=== PATIENT | male | born 1985 | race Caucasian/White ===

== ENCOUNTER 2017-11-02 22:13 | Emergency (ER) | payer SELFPAY ==
[~2017-11-02] VITALS: Ht 170.2 cm; Wt 55.7 kg
[2017-11-02 22:18] VITALS: TEMP 98
[2017-11-02 23:28] LABS: BASO # 0.1 (0.0-0.2); BASO % 0.7 % (0.0-2.0); EOS # 0.1 (0.0-0.7); EOS % 1.5 % (0-4.0); GRAN % 53.3 % (42.2-75.2); HEMATOCRIT 43.7 % (42.0-52.0); LYMPH # 2.8 (1.2-3.4); MEAN CELL VOLUME 83 fl (80.0-100.0); MEAN CORPUSCULAR HEMOGLOBIN 29 pg (27.0-31.0); MEAN CORPUSCULAR HGB CONC 34 g/dl (33.0-37.0); MEAN PLATELET VOLUME 10.3 fl (7.4-10.4); MONO # 0.5 (0.1-0.6); MONO % 7.2 % (1.7-9.3); PLATELET COUNT 210 K/mm3 (130-400); RED BLOOD COUNT 5.24 M/mm3 (4.20-5.60); REDCELL DISTRIBUTION WIDTH-CV 11.9 % (11.5-14.5)
[2017-11-02 23:39] LABS: ALBUMIN 4.1 gm/dL (3.5-5.0); BILIRUBIN,TOTAL 0.7 mg/dL (0.0-1.0); CALCIUM 9.1 mg/dL (8.4-10.2); CREATININE, serum 0.92 mg/dL (0.66-1.25); POTASSIUM 3.5 mmol/L (3.4-5.0); TOTAL PROTEIN 6.9 gm/dL (6.4-8.2)
[2017-11-02 23:54] LABS: COLLECTION METHOD CLEAN CATCH
[2017-11-03 00:05] LABS: AMORPHOUS CRYSTAL Present /uL; MUCOUS Present /lpf; PH 7 (5-8); SQUAMOUS EPITHELIAL 0-2 /hpf; URINE APPEARANCE Cloudy; URINE BACTERIA None Seen /hpf; URINE BILIRUBIN Negative (NEGATIVE); URINE BLOOD Negative (NEGATIVE); URINE COLOR Yellow; URINE GLUCOSE Negative (NEGATIVE); URINE KETONE Negative (NEGATIVE); URINE LEUKOCYTE ESTERASE Negative (NEGATIVE); URINE NITRATE Negative (NEGATIVE); URINE PROTEIN(semi-quant) 1+ (NEGATIVE); URINE RBC 20-50 /hpf; URINE UROBILINOGEN >=4.0 mg/dL (NEGATIVE)
[2017-11-03] MEDS ORDERED: FLEXERIL 1010 MG/TAB PO (01:38)
[2017-11-03] MEDS ORDERED: NORCO 325 MG-51 TAB PO (01:38)
[2017-11-03 01:50] VITALS: BP 114/77; PULSE 66
== END 2017-11-03 02:00 | disposition home or self-care (01) ==
LOC: COL.ER 22:13
PROVIDERS: Emergency Medicine
DX: N20.0 Calculus of kidney (principal); R51 Headache; M54.5 Low back pain; H53.9 Unspecified visual disturbance; F17.210 Nicotine dependence, cigarettes, uncomplicated
CPT/HCPCS: J1885; J7030; Q9967

== ENCOUNTER 2018-02-03 22:57 | Emergency (ER) | payer SELFPAY ==
[~2018-02-03] VITALS: Ht 170.2 cm; Wt 54.5 kg
[~2018-02-03 22:57] MED LIST: FLEXERIL 1010 MG/TAB PO; NORCO 325 MG-51 TAB PO
[2018-02-03 23:03] VITALS: BP 145/75; TEMP 98.3
[2018-02-03] MEDS ORDERED: FLOVENT 110MCG7.9 GM IH (23:21)
[2018-02-04 00:14] VITALS: PULSE 73
== END 2018-02-04 00:14 | disposition home or self-care (01) ==
LOC: COL.ER 22:57
DX: J06.9 Acute upper respiratory infection, unspecified (principal); F17.210 Nicotine dependence, cigarettes, uncomplicated; Z79.51 Long term (current) use of inhaled steroids

== ENCOUNTER → 2018-02-22 | Outpatient (CLI) | payer SELFPAY ==
[~2018-02-22] MED LIST changes: +FLOVENT 110MCG7.9 GM IH
[2018-02-22 12:30] LABS: HEMOGLOBIN 17.3 g/dl (13.5-18.0); MEAN CELL VOLUME 85 fl (80.0-100.0); MEAN CORPUSCULAR HEMOGLOBIN 29 pg (27.0-31.0); MEAN CORPUSCULAR HGB CONC 34 g/dl (33.0-37.0); MEAN PLATELET VOLUME 9.7 fl (7.4-10.4); PLATELET COUNT 236 K/mm3 (130-400); REDCELL DISTRIBUTION WIDTH-CV 12.3 % (11.5-14.5)
[2018-02-22 12:44] LABS: ALBUMIN 4.9 gm/dL (3.5-5.0); BILIRUBIN,TOTAL 0.6 mg/dL (0.0-1.0); CALCIUM 9.5 mg/dL (8.4-10.2); CREATININE, serum 0.83 mg/dL (0.66-1.25); POTASSIUM 4.3 mmol/L (3.4-5.0); TOTAL PROTEIN 8.8 gm/dL (6.4-8.2)
[2018-02-22 13:13] LABS: THYROID STIMULATING HORMONE 0.61 uIU/mL (0.465-4.680)
== END ==
LOC: COL.LAB 11:59
DX: R59.0 Localized enlarged lymph nodes (principal); R63.4 Abnormal weight loss; F17.210 Nicotine dependence, cigarettes, uncomplicated

== ENCOUNTER → 2018-02-25 | Outpatient (CLI) | payer SELFPAY | LOC: COL.RAD 07:19 | DX: N20.0 Calculus of kidney (principal); R59.0 Localized enlarged lymph nodes; R19.5 Other fecal abnormalities; R04.2 Hemoptysis; R63.4 Abnormal weight loss | CPT/HCPCS: Q9967 ==

== ENCOUNTER 2018-04-04 12:51 | Day surgery (SDC) | payer SELFPAY ==
[~2018-04-04] VITALS: Ht 170.2 cm; Wt 54.3 kg
[2018-04-04 13:28] VITALS: BP 119/77; PULSE 66; TEMP 97.3
[2018-04-04 14:30] VITALS: BP 116/78; PULSE 80; TEMP 97
[2018-04-04 14:45] VITALS: BP 124/78; PULSE 75
[2018-04-04 15:00] VITALS: BP 107/78; PULSE 78
[2018-04-04 15:15] VITALS: BP 114/86; PULSE 74
[2018-04-04 15:30] VITALS: BP 116/69; PULSE 65
== END 2018-04-04 15:45 | disposition home or self-care (01) ==
LOC: SDCO 12:51
DX: K92.1 Melena (principal); K64.1 Second degree hemorrhoids; K92.0 Hematemesis; K59.00 Constipation, unspecified; J43.9 Emphysema, unspecified; K21.9 Gastro-esophageal reflux disease without esophagitis; K62.89 Other specified diseases of anus and rectum
CPT/HCPCS: J2250; J2405; J3010; J7030

== ENCOUNTER 2018-04-17 18:57 | Emergency (ER) | payer SELFPAY ==
[~2018-04-17] VITALS: Ht 170.2 cm; Wt 55.7 kg
[2018-04-17 19:00] VITALS: TEMP 98.6
[2018-04-17] MEDS ORDERED: PRILOSEC 20MG20 MG PO (19:03)
[2018-04-17 19:44] LABS: BASO # 0.1 (0.0-0.2); BASO % 0.8 % (0.0-2.0); EOS # 0.1 (0.0-0.7); EOS % 1.1 % (0-4.0); GRAN # 4.4 (1.4-6.5); GRAN % 57.8 % (42.2-75.2); HEMATOCRIT 47.8 % (42.0-52.0); HEMOGLOBIN 16.3 g/dl (13.5-18.0); LYMPH # 2.4 (1.2-3.4); LYMPH % 32.1 % (20.0-51.0); MEAN CELL VOLUME 84 fl (80.0-100.0); MEAN CORPUSCULAR HEMOGLOBIN 29 pg (27.0-31.0); MEAN CORPUSCULAR HGB CONC 34 g/dl (33.0-37.0); MEAN PLATELET VOLUME 9.6 fl (7.4-10.4); MONO # 0.6 (0.1-0.6); MONO % 7.9 % (1.7-9.3); PLATELET COUNT 199 K/mm3 (130-400); RED BLOOD COUNT 5.71 M/mm3 (4.20-5.60); REDCELL DISTRIBUTION WIDTH-CV 12.2 % (11.5-14.5)
[2018-04-17 19:57] LABS: ALBUMIN 4.4 gm/dL (3.5-5.0); BILIRUBIN,TOTAL 0.7 mg/dL (0.0-1.0); CALCIUM 9.1 mg/dL (8.4-10.2); CREATININE, serum 0.76 mg/dL (0.66-1.25); POTASSIUM 4.5 mmol/L (3.4-5.0); TOTAL PROTEIN 7.7 gm/dL (6.4-8.2)
[2018-04-17 20:34] VITALS: BP 117/79; PULSE 81
== END 2018-04-17 20:45 | disposition home or self-care (01) ==
LOC: COL.ER 18:57
PROVIDERS: Emergency Medicine
DX: J42 Unspecified chronic bronchitis (principal); R42 Dizziness and giddiness; F17.210 Nicotine dependence, cigarettes, uncomplicated

== ENCOUNTER 2018-08-28 18:29 | Emergency (ER) | payer SELFPAY ==
[~2018-08-28] VITALS: Ht 170.2 cm; Wt 58.3 kg
[~2018-08-28 18:29] MED LIST changes: +PRILOSEC 20MG20 MG PO
[2018-08-28 18:38] VITALS: BP 131/82; PULSE 92; TEMP 97.9
== END 2018-08-28 18:45 | disposition left against medical advice (07) ==
LOC: COL.ER 18:29
DX: K08.89 Other specified disorders of teeth and supporting structures (principal)

== ENCOUNTER 2018-10-29 20:34 | Emergency (ER) | payer SELFPAY ==
[~2018-10-29] VITALS: Ht 170.2 cm; Wt 52.3 kg
[2018-10-29 20:38] VITALS: TEMP 98.3
[2018-10-29 21:02] LABS: BASO # 0.1 (0.0-0.2); BASO % 0.6 % (0.0-2.0); EOS # 0.1 (0.0-0.7); EOS % 0.6 % (0-4.0); GRAN # 7.4 (1.4-6.5); GRAN % 62.3 % (42.2-75.2); HEMATOCRIT 45.6 % (42.0-52.0); HEMOGLOBIN 16.1 g/dl (13.5-18.0); LYMPH # 3.2 (1.2-3.4); LYMPH % 27.2 % (20.0-51.0); MEAN CELL VOLUME 80 fl (80.0-100.0); MEAN CORPUSCULAR HEMOGLOBIN 28 pg (27.0-31.0); MEAN CORPUSCULAR HGB CONC 35 g/dl (33.0-37.0); MEAN PLATELET VOLUME 9.8 fl (7.4-10.4); MONO # 1.1 (0.1-0.6); PLATELET COUNT 260 K/mm3 (130-400); RED BLOOD COUNT 5.68 M/mm3 (4.20-5.60)
[2018-10-29 21:12] LABS: ALANINE AMINOTRANSFERASE 11 U/L (21-72); ALBUMIN 4.9 gm/dL (3.5-5.0); ALKALINE PHOSPHATASE 69 U/L (50-136); ANION GAP 18 mmol/L (7-16); AST,SGOT 23 U/L (15-37); BILIRUBIN,TOTAL 1.3 mg/dL (0.0-1.0); BLOOD UREA NITROGEN 13 mg/dL (9-20); CALCIUM 10.4 mg/dL (8.4-10.2); CARBON DIOXIDE 20 mmol/L (22-30); CHLORIDE 103 mmol/L (98-107); CREATINE KINASE 97 U/L (55-170); CREATININE, serum 1.08 (0.66-1.25); GLUCOSE 102 mg/dL (74-106); LIPASE 27 U/L (23-300); POTASSIUM 3.4 mmol/L (3.4-5.0); SODIUM 140 mmol/L (137-145); TOTAL PROTEIN 8.4 gm/dL (6.4-8.2)
[2018-10-29 21:24] LABS: TROPONIN-I < 0.012 ng/mL (0.000-0.035)
[2018-10-29 22:26] LABS: TRICYCLIC ANTIDEPRESS URINE NEGATIVE
[2018-10-29 23:00] VITALS: BP 115/85; PULSE 100
== END 2018-10-29 23:00 | disposition home or self-care (01) ==
LOC: COL.ER 20:34
PROVIDERS: Emergency Medicine
DX: F15.10 Other stimulant abuse, uncomplicated (principal); R07.9 Chest pain, unspecified; R06.00 Dyspnea, unspecified; R00.2 Palpitations; K21.9 Gastro-esophageal reflux disease without esophagitis; F17.210 Nicotine dependence, cigarettes, uncomplicated
CPT/HCPCS: J7030